=== PATIENT | female | born 1990 | race Caucasian/White ===

== ENCOUNTER 2017-12-13 08:35 | Day surgery (SDC) | payer OTHER ==
[2017-12-13] MEDS ORDERED: LIDOCAINE 1%/EPI 30 ML INJ (12:28)
[2017-12-13] MEDS ORDERED: EPINEPHrine 1 MG INJ (12:28)
[2017-12-13] MEDS ORDERED: GELATIN SIZE 100 SPONGE (12:28)
[2017-12-13] MEDS ORDERED: PROPOFOL 20 ML (12:46)
[2017-12-13] MEDS ORDERED: LIDOCAINE 2% (SDV) 5 ML INJ (12:46)
[2017-12-13] MEDS ORDERED: ONDANSETRON 4 MG INJ (12:59)
[2017-12-13] MEDS ORDERED: METOCLOPRAMIDE 10 MG INJ (12:59)
[2017-12-13] MEDS ORDERED: METOCLOPRAMIDE 10 MG INJ IV (13:00)
[2017-12-13] MEDS ORDERED: DIPHENHYDRAMINE 50 MG INJ IV (13:00)
[2017-12-13] MEDS ORDERED: FENTAnyl 50 MCG/ML VIAL IV ×3 (13:00)
[2017-12-13] MEDS ORDERED: ONDANSETRON 4 MG INJ IV (13:00)
[2017-12-13] MEDS ORDERED: OXYCODONE/ACETAMINOPHEN (5/325) TAB PO ×2 (13:00)
[2017-12-13] MEDS ORDERED: MEPERIDINE 25 MG INJ IV (13:00)
[2017-12-13] MEDS ORDERED: MIDAZOLAM 1 MG/ML 2 ML INJ IV (13:00)
[2017-12-13] MEDS ORDERED: ACETAMINOPHEN 325 MG TAB PO (14:00)
== END 2017-12-13 14:40 | disposition home or self-care (01) ==
LOC: SDS 08:35
DX: H65.91 Unspecified nonsuppurative otitis media, right ear (principal); E03.9 Hypothyroidism, unspecified; E66.9 Obesity, unspecified; Z68.31 Body mass index [BMI] 31.0-31.9, adult
CPT/HCPCS: 69436